=== PATIENT | female | born 1990 | race Caucasian/White ===

== ENCOUNTER → 2017-07-11 | Outpatient (CLI) | payer OTHER | LOC: FIMAGING 10:36 | PROVIDERS: ATTEND Advanced Practice Midwife | DX: O36.5930 Maternal care for other known or suspected poor fetal growth, third trimester, not applicable or unspecified (principal); Z3A.37 37 weeks gestation of pregnancy ==

== ENCOUNTER 2018-07-08 11:58 | Emergency (ER) | payer MEDICAID, OTHER ==
--- NOTE | 2018-07-08 12:40 | EDPHY ---
H & P Stated Complaint: Pt had painless bruise L lat low leg x1mo, growing s assoc s/s Time Seen by Provider: 07/08/18 12:16 HPI/ROS: CHIEF COMPLAINT: Skin changes noted to left leg HISTORY OF PRESENT ILLNESS: The patient presents to the ED with skin changes she has noted on her left leg for the past month. She reports an area of hyperpigmentation. She denies any acute pain. She denies any history of trauma. She denies any unilateral exposure to a heat source. The patient has had some upper respiratory symptoms over the past several days. The patient reports a remote history of a Gilbert's disease. The patient takes no regular medications. She denies additional acute complaints. REVIEW OF SYSTEMS: A comprehensive 10 point review of systems is otherwise negative aside from elements mentioned in the history of present illness. Source: Patient Exam Limitations: No limitations - Personal History LMP (Females 10-55): Now Current Tetanus/Diphtheria Vaccine: Yes - Medical/Surgical History Hx Asthma: No Hx Chronic Respiratory Disease: No Hx Diabetes: No Hx Cardiac Disease: No Hx Renal Disease: No Hx Cirrhosis: No Hx Alcoholism: No Hx HIV/AIDS: No Hx Splenectomy or Spleen Trauma: No Other PMH: Gilbert's Disease, cholycystectomy, breast augmentation - Social History Smoking Status: Heavy smoker - Physical Exam Exam: General Appearance: Alert, no distress Eyes: Pupils equal and round no pallor or injection ENT, Mouth: Mucous membranes moist Respiratory: There are no retractions, lungs are clear to auscultation Cardiovascular: Regular rate and rhythm Gastrointestinal: Abdomen is soft and nontender, no masses, bowel sounds normal Neurological: 5/5 strength noted all 4 extremities Skin: Area of particular hyperpigmentation noted to the lateral aspect of the left leg. Musculoskeletal: No calf tenderness or swelling noted bilaterally. Extremities: symmetrical, full range of motion, 2+ dorsalis pedis and posterior tibial pulses noted bilaterally Constitutional: Initial Vital Signs Temperature (C) 36.6 C 07/08/18 12:09 Heart Rate 84 07/08/18 12:09 Respiratory Rate 16 07/08/18 12:09 Blood Pressure 132/94 H 07/08/18 12:09 O2 Sat (%) 98 07/08/18 12:09 O2 Delivery Mode Room Air Allergies/Adverse Reactions: Penicillins Allergy (Verified 07/08/18 12:08) Medical Decision Making ED Course/Re-evaluation: The patient presents to the ED with area of hyperpigmentation noted to her lower extremity. It appears to be most consistent with a reticular hyperpigmentation. Patient has had some vague symptoms of a viral upper respiratory infection. Her vital signs are stable and she is in no acute distress. Screening laboratory studies demonstrate no acute abnormality. At this point time I do recommend that the patient follow up with Dermatology for further evaluation of her skin condition. Differential Diagnosis: Differential diagnosis considered includes hives, urticaria, hyperpigmentation - Data Points Laboratory Results: Laboratory Results 07/08/18 12:51 07/08/18 12:51 07/08/18 07/08/18 07/08/18 12:51 12:51 12:51 WBC 7.33 10^3/uL 10^3/uL (3.80-9.50) RBC 5.24 10^6/uL 10^6/uL (4.18-5.33) Hgb 15.9 g/dL g/dL (12.6-16.3) Hct 46.8 % % (38.0-47.0) MCV 89.3 fL fL (81.5-99.8) MCH 30.3 pg pg (27.9-34.1) MCHC 34.0 g/dL g/dL (32.4-36.7) RDW 12.7 % % (11.5-15.2) Plt Count 198 10^3/uL 10^3/uL (150-400) MPV 11.2 fL fL (8.7-11.7) Neut % (Auto) 69.7 % % (39.3-74.2) Lymph % (Auto) 22.1 % % (15.0-45.0) Greenlee % (Auto) 6.1 % % (4.5-13.0) Eos % (Auto) 1.2 % % (0.6-7.6) Baso % (Auto) 0.5 % % (0.3-1.7) Nucleat RBC Rel Count 0.0 % % (0.0-0.2) Absolute Neuts (auto) 5.10 10^3/uL 10^3/uL (1.70-6.50) Absolute Lymphs (auto) 1.62 10^3/uL 10^3/uL (1.00-3.00) Absolute Monos (auto) 0.45 10^3/uL 10^3/uL (0.30-0.80) Absolute Eos (auto) 0.09 10^3/uL 10^3/uL (0.03-0.40) Absolute Basos (auto) 0.04 10^3/uL 10^3/uL (0.02-0.10) Absolute Nucleated RBC 0.00 10^3/uL 10^3/uL (0-0.01) Immature Gran % 0.4 % % (0.0-1.1) Immature Gran # 0.03 10^3/uL 10^3/uL (0.00-0.10) Sodium 139 mEq/L mEq/L (135-145) Potassium 3.8 mEq/L mEq/L (3.5-5.2) Chloride 110 mEq/L mEq/L (97-110) Carbon Dioxide 22 mEq/l mEq/l (22-31) Anion Gap 7 mEq/L mEq/L (6-14) BUN 13 mg/dL mg/dL (7-23) Creatinine 0.8 mg/dL mg/dL (0.6-1.0) Estimated GFR > 60 Glucose 109 mg/dL H mg/dL (70-100) Calcium 9.2 mg/dL mg/dL (8.5-10.4) Total Bilirubin 0.4 mg/dL mg/dL (0.1-1.4) Conjugated Bilirubin 0.2 mg/dL mg/dL (0.0-0.5) Unconjugated Bilirubin 0.2 mg/dL mg/dL (0.0-1.1) AST 25 IU/L IU/L (14-46) ALT 19 IU/L IU/L (9-52) Alkaline Phosphatase 92 IU/L IU/L (38-126) Total Protein 7.8 g/dL g/dL (6.3-8.2) Albumin 4.4 g/dL g/dL (3.5-5.0) Beta HCG, Qual NEGATIVE Departure - Departure Disposition: Home, Routine, Self-Care Clinical Impression: Hyperpigmentation of skin Condition: Good Additional Instructions: 1. The laboratory testing emergency department today demonstrates no obvious abnormality. 2. I do recommend contacting a boring machine feeder for further evaluation of your skin abnormality. Referrals: Tessie Spear MD [Medical Doctor] - As per Instructions
[2018-07-08 12:54] LABS: PLATELET COUNT 198 10^3/uL (150-400)
[2018-07-08 13:49] VITALS: BP 131/76
== END 2018-07-08 13:52 | disposition home or self-care (01) ==
DX: L81.9 Disorder of pigmentation, unspecified (principal)